=== PATIENT | female | born 1945 | race African-American/Black ===

== ENCOUNTER → 2019-01-04 | Outpatient (CLI) | payer MEDICARE | END | disposition home or self-care (01) | LOC: CT 08:13 | PROVIDERS: ATTEND Internal Medicine Gastroenterology | DX: N28.1 Cyst of kidney, acquired (principal); K57.30 Diverticulosis of large intestine without perforation or abscess without bleeding; K44.9 Diaphragmatic hernia without obstruction or gangrene; K42.9 Umbilical hernia without obstruction or gangrene | CPT/HCPCS: 74176 ==

== ENCOUNTER 2022-07-22 02:08 | Emergency (ER) | payer BC, MEDICAID ==
[~2022-07-22] VITALS: Ht 170.2 cm; Wt 114.0 kg
[~2022-07-22 02:08] MED LIST: ALBU6.7H3 INH; AMLO5TAB88 PO; ASPI-1153 PO; FLUT1AER4 INH; FLUT1BLS INH; NIFE-33 PO; OMEP40CA20 PO
[2022-07-22] MEDS ORDERED: ACETAMINOPHEN 325MG TABLET PO ONE (02:30)
[2022-07-22] MEDS ORDERED: NIFEDIPINE XL 30MG TAB PO ONE (02:45)
[2022-07-22] MEDS ORDERED: NIFEDIPINE XL 30MG TAB PO NR (02:45)
[2022-07-22] MEDS ORDERED: NAP5EC PO (04:42)
[2022-07-22] MEDS ORDERED: LIDO700A15 TP (04:47)
[2022-07-22 06:00] VITALS: BP 191/94
[2022-07-22] MEDS ORDERED: HYDRALAZINE HCL 50MG TABLET PO ONE (06:30)
== END 2022-07-22 08:17 | disposition home or self-care (01) ==
LOC: ER 02:08
DX: S00.03XA Contusion of scalp, initial encounter (principal); S05.12XA Contusion of eyeball and orbital tissues, left eye, initial encounter; I10 Essential (primary) hypertension; Z88.2 Allergy status to sulfonamides; Z88.1 Allergy status to other antibiotic agents; Z79.82 Long term (current) use of aspirin; Y04.0XXA Assault by unarmed brawl or fight, initial encounter; Y07.499 Other family member, perpetrator of maltreatment and neglect; Y93.89 Activity, other specified; Y92.018 Other place in single-family (private) house as the place of occurrence of the external cause
CPT/HCPCS: 70486; 71101; 99284